=== PATIENT | male | born 1980 | race Caucasian/White ===

== ENCOUNTER 2018-12-20 19:52 | Emergency (ER) | payer BC, SELFPAY ==
[2018-12-20 20:02] VITALS: BP 150/94; PULSE 74; RESP 16; TEMP 36.6; O2SAT 96
--- NOTE | 2018-12-20 20:13 | W.ED.GENAD ---
Discharge Plan Disposition Patient Disposition: HOME Condition: Good Discharge Details Chief Complaint: Orthopedic Clinical Impression: Injury of ankle, left Primary Care Provider: None,None ED Provider: Jesus Lucero Meds and New Rx's Prescriptions: Changed ibuprofen 200 mg Tablet 600 mg PO Q6H PRNQty: 0 RF: 0 Discharge Instructions Instructions: Ankle Sprain (ED) Additional Instructions: X-rays are questionable for a possible small avulsion fracture versus severe sprain. Wear the walking boot during the day and follow-up with orthopedics. Ice and elevate over the next few days. Ibuprofen for pain and swelling. We will have care management work on getting you a primary care provider as well for management of your blood pressure. Referrals: Care Management [Provider Group] Markus Abreu MD [ [facility] STAFF PHYSICIAN] - Medical Decision Making Patient with isolated left ankle injury while playing soccer. Has significant swelling over the lateral malleolus but does not have any bony tenderness anywhere. Technically passes the [place] ankle rules but because the amount of swelling that is present involving the lateral malleolus will get x-rays to confirm no fracture. 21:00 -patient's x-ray does reveal a linear osseous fragment between the talus and lateral malleolus. There is significant soft tissue swelling. Unclear whether this fragment is new or old. May be a small avulsion injury. 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 He is also supposed to be walking at graduation next week. We will place him in a walking boot and have him follow-up with orthopedics. Ibuprofen and ice for pain and swelling. We will also refer to primary care as he does not have one here. He has been on lisinopril in the past for high blood pressure. His blood pressure of 150/90 is typical for him. We discussed the risk of not treating elevated blood pressure/hypertension. He is requesting referral to primary care. Will place him on care management list for follow-up in 4 to 6 weeks with primary care for elevated blood pressure. HPI General Mode of arrival: ambulatory. Date/Time Provider Initiated Documentation: 12/20/18 20:05. Limitations to Documentation: no limitations. Information obtained by: patient. HPI Narrative: Patient presents to ED with complaint of left ankle pain. Patient was playing soccer when he twisted his ankle going over the soccer ball. He heard a snap. He was ambulatory to the field house where he grabbed ice and ibuprofen. The lateral aspect of his ankle is very swollen. He decided to come in to make sure there is no fracture. He was able to ambulate in. He denies other injury. Related Data Home Medications Medication Instructions Recorded Confirmed ibuprofen 600 mg PO Q6H PRN #0 tab 12/20/18 12/20/18 Previous Rx's Medication Instructions Recorded ibuprofen 600 mg PO Q6H PRN #0 tab 12/20/18 General Stated Complaint: Orthopedic RICHARD: 4 Review of Systems Review of Systems As documented in HPI otherwise negative as below. Const: no fever, chills, weakness Resp: no cough, SOB, pleuritic pain CV: no CP, diaphoresis, edema, syncope GI: no abdominal pain, nausea, vomiting, diarrhea Neuro: no headache, numbness, focal weakness, confusion PFSH Medical History HTN (hypertension) (Chronic) Surgical History S/P ORIF (open reduction internal fixation) fracture (Inactive) Social History Smoking/Tobacco Use Status: Never Alcohol Intake: never Substance use type: does not use Do you feel safe at home: Yes Do you feel safe in your relationship?: Yes Exam Narrative Exam Narrative: Vitals: BP elevated. Const: WDWN male in NAD. HEENT: NC/AT. Normal facial exam. Neck: Supple. Trachea midline. Lungs: Normal respiratory effort. Neuro: A+O x 3. CN grossly in tact. Good strength and no focal deficit. Ext: Left ankle with marked lateral malleolus swelling. No significant tenderness over either malleoli, proximal fibula, lateral foot. Patient is neurovascularly intact. Skin: Warm and dry. No wounds. Course Vital Signs Temperature 97.9 F 12/20/18 20:02 Pulse 74 12/20/18 20:02 Respiratory Rate 16 12/20/18 20:02 Blood Pressure 150/94 H 12/20/18 20:02 Pulse Oximetry 96 12/20/18 20:02 Temperature 97.9 F 12/20/18 20:02 Temperature Source Temporal Artery Scan 12/20/18 20:02 Pulse 74 12/20/18 20:02 Respiratory Rate 16 12/20/18 20:02 Respiratory Effort 12/20/18 20:06 Blood Pressure 150/94 H 12/20/18 20:02 Blood Pressure Position Sitting 12/20/18 20:02 Pulse Oximetry 96 12/20/18 20:02 Oxygen Delivery Method Room Air 12/20/18 20:02 Oxygen Flow Rate 0 12/20/18 20:02
--- NOTE | 2018-12-20 20:18 | ED.GENADUL_ITS ---
Discharge Plan Disposition Patient Disposition: HOME Condition: Good Discharge Details Chief Complaint: Orthopedic Clinical Impression: Injury of ankle, left Primary Care Provider: None,None ED Provider: Jesus Lucero Meds and New Rx's Prescriptions: Changed ibuprofen 200 mg Tablet 600 mg PO Q6H PRNQty: 0 RF: 0 Discharge Instructions Instructions: Ankle Sprain (ED) Additional Instructions: X-rays are questionable for a possible small avulsion fracture versus severe sprain. Wear the walking boot during the day and follow-up with orthopedics. Ice and elevate over the next few days. Ibuprofen for pain and swelling. We will have care management work on getting you a primary care provider as well for management of your blood pressure. Referrals: Care Management [Provider Group] Markus Abreu MD [ [facility] STAFF PHYSICIAN] - Medical Decision Making Patient with isolated left ankle injury while playing soccer. Has significant swelling over the lateral malleolus but does not have any bony tenderness anywhere. Technically passes the [place] ankle rules but because the amount of swelling that is present involving the lateral malleolus will get x-rays to confirm no fracture. 21:00 -patient's x-ray does reveal a linear osseous fragment between the talus and lateral malleolus. There is significant soft tissue swelling. Unclear whether this fragment is new or old. May be a small avulsion injury. 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 He is also supposed to be walking at graduation next week. We will place him in a walking boot and have him follow- up with orthopedics. Ibuprofen and ice for pain and swelling. We will also refer to primary care as he does not have one here. He has been on lisinopril in the past for high blood pressure. His blood pressure of 150/90 is typical for him. We discussed the risk of not treating elevated blood pressure/hypertension. He is requesting referral to primary care. Will place him on care management list for follow-up in 4 to 6 weeks with primary care for elevated blood pressure. HPI General Mode of arrival: ambulatory . Date/Time Provider Initiated Documentation: 12/20/18 20:05 . Limitations to Documentation: no limitations . Information obtained by: patient . HPI Narrative: Patient presents to ED with complaint of left ankle pain. Patient was playing soccer when he twisted his ankle going over the soccer ball. He heard a snap. He was ambulatory to the field house where he grabbed ice and ibuprofen. The lateral aspect of his ankle is very swollen. He decided to come in to make sure there is no fracture. He was able to ambulate in. He denies other injury. Related Data Home Medications Medication Instructions Recorded Confirmed ibuprofen 600 mg PO Q6H PRN #0 tab 12/20/18 12/20/18 Previous Rx's Medication Instructions Recorded ibuprofen 600 mg PO Q6H PRN #0 tab 12/20/18 General Stated Complaint: Orthopedic RICHARD: 4 Review of Systems Review of Systems As documented in HPI otherwise negative as below. Const: no fever, chills, weakness Resp: no cough, SOB, pleuritic pain CV: no CP, diaphoresis, edema, syncope GI: no abdominal pain, nausea, vomiting, diarrhea Neuro: no headache, numbness, focal weakness, confusion PFSH Medical History HTN (hypertension) (Chronic) Surgical History S/P ORIF (open reduction internal fixation) fracture (Inactive) Social History Smoking/Tobacco Use Status: Never Alcohol Intake: never Substance use type: does not use Do you feel safe at home: Yes Do you feel safe in your relationship?: Yes Exam Narrative Exam Narrative: Vitals: BP elevated. Const: WDWN male in NAD. HEENT: NC/AT. Normal facial exam. Neck: Supple. Trachea midline. Lungs: Normal respiratory effort. Neuro: A+O x 3. CN grossly in tact. Good strength and no focal deficit. Ext: Left ankle with marked lateral malleolus swelling. No significant tenderness over either malleoli, proximal fibula, lateral foot. Patient is neurovascularly intact. Skin: Warm and dry. No wounds. Course Vital Signs Temperature 97.9 F 12/20/18 20:02 Pulse 74 12/20/18 20:02 Respiratory Rate 16 12/20/18 20:02 Blood Pressure 150/94 H 12/20/18 20:02 Pulse Oximetry 96 12/20/18 20:02 Temperature 97.9 F 12/20/18 20:02 Temperature Source Temporal Artery Scan 12/20/18 20:02 Pulse 74 12/20/18 20:02 Respiratory Rate 16 12/20/18 20:02 Respiratory Effort 12/20/18 20:06 Blood Pressure 150/94 H 12/20/18 20:02 Blood Pressure Position Sitting 12/20/18 20:02 Pulse Oximetry 96 12/20/18 20:02 Oxygen Delivery Method Room Air 12/20/18 20:02 Oxygen Flow Rate 0 12/20/18 20:02
--- NOTE | 2018-12-20 20:40 | DI.RAD_ITS ---
SYMPTOM/DIAGNOSIS: TRAUMA, PAIN, ROLLED ANKLE LEFT ANKLE: A tiny calcific density is noted beneath the distal fibula and could possibly represent a small avulsion fracture. There is no other findings to suggest a fracture or dislocation.
--- NOTE | 2018-12-20 20:58 | DI.VRAD_ITS ---
EXAM: XR Left Ankle EXAM DATE/TIME: 12/20/2018 8:12 PM CLINICAL HISTORY: 38 years old, male; Pain; Left; Patient HX: Trauma. Rolled ankle. TECHNIQUE: Imaging protocol: XR Left ankle. Views: 3 or more views. COMPARISON: No relevant prior studies available. FINDINGS: Bones/joints: There is a tiny linear osseous fragment projecting inferior to the lateral malleolus on the AP film (image 1 series 1). No other acutely displaced fracture or dislocation is appreciated. Bone density is well preserved. Soft tissues: Significant soft tissue swelling about the lateral malleolus. IMPRESSION: 1. Tiny linear osseous fragment projecting inferior to the lateral malleolus raises the question of a possible small avulsion injury. No other acutely displaced fracture or dislocation is appreciated. 2. Significant soft tissue swelling about the lateral malleolus. Dictated and Authenticated by: Jose German MD. Ordering:ROBYN Lee MD
[2018-12-20 22:17] VITALS: BP 150/88
--- NOTE | 2018-12-21 09:26 | PDOC.ERCMPRO ---
Care Management Progress Note 12/21-Dr. 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 Referral faxed to [facility] this am.
--- NOTE | 2018-12-21 09:27 | CMPROGNOTE_ITS ---
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 Referral faxed to [facility] this am.
--- NOTE | 2018-12-21 14:14 | PDOC.ERCMPRO ---
Care Management Progress Note 5/30-CM faxed back, scheduled appt for 01/04 at 2:40 with Lashawn Bruno.
== END 2018-12-20 21:35 | disposition home or self-care (01) ==
PROVIDERS: Emergency Provider Emergency Medicine
DX: S93.402A Sprain of unspecified ligament of left ankle, initial encounter (principal); X50.9XXA Other and unspecified overexertion or strenuous movements or postures, initial encounter; Y93.66 Activity, soccer; I10 Essential (primary) hypertension
CPT/HCPCS: 29515; 99283; 73610; L4361

== ENCOUNTER 2020-04-14 18:10 | Outpatient (REF) | payer BC, SELFPAY ==
[2020-04-14 19:36] LABS: ALT 31 U/L (16-63); AST 23 U/L (15-37); Albumin 4.1 g/dL (3.4-5.0); Alkaline Phosphatase 55 U/L (46-116); Anion Gap 8.2 mmol/L (3-11); BUN 14 mg/dL (7-18); CO2 26.8 mmol/L (21.0-32.0); CREATININE 0.87 mg/dL (0.70-1.30); Calcium 9.3 mg/dL (8.5-10.1); Chloride 105 mmol/L (98-107); Glucose 90 mg/dL (74-106); Potassium 4.2 mmol/L (3.5-5.1); Sodium 140 mmol/L (136-145); TSH (W/Ref FT4) 2.58 uIU/mL (0.36-3.74); Total Protein 7.2 g/dL (6.4-8.2)
== END 2020-04-14 18:30 ==
LOC: NCHCN 18:10
PROVIDERS: PCP Nurse Practitioner; Visit Provider Nurse Practitioner
DX: I10 Essential (primary) hypertension (principal); Z13.29 Encounter for screening for other suspected endocrine disorder; Z13.21 Encounter for screening for nutritional disorder
CPT/HCPCS: 80053; 82306; 84443

== ENCOUNTER 2021-06-08 13:52 | Outpatient (REF) | payer BC, SELFPAY ==
[2021-06-10 17:03] LABS: COVID-19 RT-PCR UVMMC Result Negative (Negative)
== END 2021-06-08 13:53 | disposition home or self-care (01) ==
LOC: LBN 13:52
PROVIDERS: PCP Nurse Practitioner; Visit Provider Nurse Practitioner Family
DX: Z20.822 Contact with and (suspected) exposure to COVID-19 (principal)
CPT/HCPCS: U0003

== ENCOUNTER 2021-09-21 16:49 | Outpatient (REF) | payer BC, SELFPAY ==
[2021-09-21 20:11] LABS: Anion Gap 9.1 mmol/L (3-11); BUN 20 mg/dL (7-18); CO2 25.9 mmol/L (21.0-32.0); CREATININE 0.9 mg/dL (0.70-1.30); Calcium 9.3 mg/dL (8.5-10.1); Chloride 103 mmol/L (98-107); Glucose 102 mg/dL (74-106); Potassium 4.1 mmol/L (3.5-5.1); Sodium 138 mmol/L (136-145)
== END 2021-09-21 16:50 | disposition home or self-care (01) ==
LOC: NCHCN 16:49
PROVIDERS: PCP Nurse Practitioner; Visit Provider Nurse Practitioner Family
DX: Z00.00 Encounter for general adult medical examination without abnormal findings (principal); I10 Essential (primary) hypertension; F41.1 Generalized anxiety disorder
CPT/HCPCS: 80048

== ENCOUNTER 2021-10-14 20:40 | Emergency (ER) | payer BC, SELFPAY ==
[2021-10-14 20:45] VITALS: BP 159/93; PULSE 92; RESP 14; TEMP 36.5; O2SAT 98
--- NOTE | 2021-10-14 21:00 | DI.RAD_ITS ---
Exam(s) XR ANKLE LT COMPLETE EXAM: XR ANKLE LT COMPLETE CLINICAL HISTORY: sports injury, left ankle pain TECHNIQUE: 2D digital imaging was performed of the left ankle. Three images were obtained. AP, lat eral and oblique views were obtained. COMPARISON: CR XR ANKLE LT COMPLETE from 12/20/2018 FINDINGS: BONES: No acute fracture is present. No bony destructive lesion is seen. Tiny well corticated osseous density at the tip of the lateral malleolus consistent with old injury. JOINTS:The ankle mortise is normally aligned. SOFT TISSUE: Normal. IMPRESSION: No acute fracture or dislocation. DATA REPOSITORY: RADIATION DOSE DELIVERED:
--- NOTE | 2021-10-14 21:07 | ED.GENADUL_ITS ---
Discharge Plan Disposition Patient Disposition: HOME Condition: Improving Discharge Details Chief Complaint: Orthopedic Clinical Impression: Achilles rupture Primary Care Provider: SINCERE JOHNSON ED Provider: Ha Rudolph Home Meds and New Rx's Prescriptions: No Action ibuprofen 200 mg Tablet 600 mg PO Q6H PRNQty: 0 0RF lisinopril 20 mg Tablet 20 mg DAILY 0RF sertraline 100 mg Tablet 100 mg PO DAILY 0RF Discharge Instructions Instructions: Achilles Tendon Rupture (ED) Additional Instructions: Please be seen by Dr. Rodrigez orthopedic surgery in the office next week. Continue to use your crutches and do not bear weight on your affected leg. Return to the emergency department for any worsening symptoms, or if you develop numbness/change in sensation or change in color in your lower extremity. Referrals: Maurisio Rodrigez MD [ [facility] STAFF PHYSICIAN] - 1 week Medical Decision Making 41-year-old male presents after sports injury playing indoor soccer, pain and swelling to posterior ankle, decreased range of motion, positive Terry's test concerning for Achilles tendon rupture, no malleoli tenderness or deformity, patient soft compartments, warm well perfused extremity, superficial knee abrasion, no effusion or laxity to the knee. Will perform screening x-ray of ankle, analgesia, will contact orthopedic team to determine best plan for patient whether early operative intervention or follow-up within the next couple of days. Likely to immobilize Spoke with Dr. Rodrigez of orthopedic surgery, patient to be placed in a posterior slab lower extremity 20 degree plantar flexion, crutches nonweightbearing, to follow-up in the office. Pain controlled resting comfortably. Home care instructions and return precautions given HPI General Date/Time Provider Initiated Documentation: 10/14/21 20:41 . HPI Narrative: 41-year-old male presents after sports injury was playing soccer this [place], felt acute discomfort in his left ankle, decreased range of motion of the left ankle, also sustained abrasion to his left knee Related Data Home Medications Medication Instructions Recorded Confirmed ibuprofen 200 mg tablet 600 mg PO Q6H PRN #0 tab 12/20/18 10/14/21 lisinopril 20 mg tablet 20 mg DAILY 10/14/21 10/14/21 sertraline 100 mg tablet 100 mg PO DAILY 10/14/21 10/14/21 Previous Rx's Medication Instructions Recorded ibuprofen 200 mg tablet 600 mg PO Q6H PRN #0 tab 12/20/18 Allergies Allergy/AdvReac Type Severity Reaction Status Date / Time No Known Allergies Allergy Verified 10/14/21 20:51 General Stated Complaint: Orthopedic RICHARD: 4 Review of Systems Narrative: Review of Systems Constitutional: negative Eyes: negative ENT: negative Cardiovascular: negative Respiratory: negative Gastrointestinal: negative : negative Musculoskeletal: Ankle pain decreased range of motion Skin: negative Neurologic: negative Psych: negative PFSH All Active Problems (Updated 10/14/21 @ 23:08 by Ha Rudolph MD) Achilles rupture (Acute) Left radial head fracture (Acute) Acromioclavicular (joint) (ligament) sprain (Acute) Avulsion fracture of ankle (Acute) DOI: 12/20/2018 Medical History (Updated 10/14/21 @ 23:08 by Ha Rudolph MD) HTN (hypertension) Surgical History S/P ORIF (open reduction internal fixation) fracture right forearm Social History Smoking/Tobacco Use Status: Never Smoking risk assessment performed?: Yes Alcohol Intake: never Substance use type: does not use Do you feel safe at home: Yes Do you feel safe in your relationship?: Yes Exam Narrative Exam Narrative: Physical Examination General: alert, awake, cooperative, resting comfortably, no acute distress HEENT: normocephalic, atraumatic; PERRL, EOM intact, conjunctiva normal; no nasal discharge; moist mucous membranes, oral and pharyngeal mucosa normal, tolerating secretions Neck: supple, trachea midline; full ROM Chest: normal to inspection Respiratory: normal respiratory effort, speaking in full sentences, clear to auscultation, no wheezing, rales or rhonchi Cardiac: regular rate, regular rhythm, S1S2 intact, no murmurs rubs or gallops GI: abdomen soft, non-tender, non-distended; no palpable mass or hepatosplenomegaly Skin: no lesions, rashes or trauma appreciated Neuro: AAOx3, normal speech, moving all extremities Extremities: Superficial abrasion to prepatellar soft tissue of left lower extremity, edema to posterior ankle overlying area of Achilles tendon, unable to palpate discrete tendon midline, positive Terry test (no plantarflexion with sqeezing of gastroc); soft compartment, sensate warm well perfused extremity Psych: Appropriate mood and affect Course Vital Signs Vital signs: Vital Signs Temperature 36.5 C 10/14/21 20:45 Pulse 92 H 10/14/21 20:45 Respiratory Rate 14 10/14/21 20:45 Blood Pressure 159/93 H 10/14/21 20:45 Pulse Oximetry 98 10/14/21 20:45 Temperature 36.5 C 10/14/21 20:45 Temperature Source Temporal Artery Scan 10/14/21 20:45 Pulse 92 H 10/14/21 20:45 Respiratory Rate 14 10/14/21 20:45 Respiratory Effort Non-Labored 10/14/21 20:48 Blood Pressure 159/93 H 10/14/21 20:45 Blood Pressure Position Supine 10/14/21 20:45 Pulse Oximetry 98 10/14/21 20:45 Oxygen Delivery Method Room Air 10/14/21 20:45 Oxygen Flow Rate 0 10/14/21 20:45 Pain Level 3 10/14/21 20:45 Procedures Other Description: Posterior slab left lower extremity in 20 degree plantar flexion at the ankle,crutches and crutch training, sensation and color in toes intact
[2021-10-14] MEDS: oxyCODONE 5 mg/Acetaminophen 325 mg TAB 1 TAB PO (21:12)
[2021-10-14] MEDS: Ondansetron O.D.T. 4 MG TABEF SL (21:12)
--- NOTE | 2021-10-14 22:34 | DI.VRAD_ITS ---
PROCEDURE INFORMATION: Exam: XR Left Ankle Exam date and time: 10/14/2021 21:29 Age: 41 years old Clinical indication: Other: Sports injury, left ankle pain TECHNIQUE: Imaging protocol: XR Left ankle. Views: 3 or more views. COMPARISON: CR XR ANKLE LT COMPLETE 12/20/2018 20:33 FINDINGS: Bones/joints: Plantar calcaneal spur. No acute fracture or subluxation. Soft tissues: Evidence of probable chronic ligamentous injury in the lateral ankle. Mild swelling about the ankle. IMPRESSION: No acute bony pathology. Dictated and Authenticated by: Anita Morgan MD. Ordering:PVENKAT Bonner MD
== END 2021-10-14 23:15 | disposition home or self-care (01) ==
PROVIDERS: Emergency Provider Emergency Medicine; PCP Nurse Practitioner Family
DX: S86.092A Other specified injury of left Achilles tendon, initial encounter (principal); X50.1XXA Overexertion from prolonged static or awkward postures, initial encounter
CPT/HCPCS: 29515; 99283; 73610

== ENCOUNTER 2021-11-19 20:19 | Emergency (ER) | payer BC, SELFPAY ==
[2021-11-19 20:38] VITALS: BP 149/95; PULSE 71; RESP 18; TEMP 36.6; O2SAT 98
--- NOTE | 2021-11-19 22:27 | W.ED.GENAD ---
Discharge Plan Disposition Patient Disposition: HOME Condition: Stable Discharge Details Clinical Impression: Pain and swelling of left lower leg Primary Care Provider: SINCERE JOHNSON ED Provider: Etta Salguero Home Meds and New Rx's Prescriptions: No Action ibuprofen 200 mg Tablet 600 mg PO Q6H PRNQty: 0 0RF lisinopril 20 mg Tablet 20 mg DAILY 0RF sertraline 100 mg Tablet 100 mg PO DAILY 0RF Discharge Instructions Instructions: Leg Pain (ED) Additional Instructions: Return to the radiology department as directed or and or schedule by diagnostic imaging either tomorrow or Tuesday. Please follow-up with result either in the ER if you are able to come tomorrow or with your primary care provider. Take a chewable baby aspirin daily. Return to the ER for any chest pain, shortness of breath, worsening pain in your upper extremity or any concerns. Follow up with primary care provider in 3-5 days. Return to ED sooner if any worsening or concerns. Increase oral fluids. Rest, ice, compression, elevation. Stand Alone Forms: Work Release Referrals: SINCERE JOHNSON, [facility] [Primary Care Provider] - 3 days Medical Decision Making 41-year-old male presents to the ER with chief complaint of left lower extremity swelling and increased warmth mild redness with concern for possible DVT. Patient had a torn Achilles tendon approximately 5 weeks ago and was seen by orthopedic and has been wearing a boot. Patient was sent here with a concern for rule out DVT. Informed patient that I do not have ultrasound capabilities at this time I do recommend that he comes back in the a.m. to get a left lower extremity Doppler to rule out DVT. We will give 324 mg aspirin at this time and perform a POC ultrasound. Bedside ultrasound performed veins are compressible throughout lower extremity. Instructed patient to take 81 mg daily baby aspirin until official ultrasound to be performed and resulted. He verbalizes understanding. I discussed strict return instructions to return for any chest pain shortness of breath worsening swelling, fever or any concerns she verbalized understanding. I did discuss RICE procedures and have him elevate ice his leg while sitting for long periods of time. This text was generated using ODECation system, please disregard any oddities of phrase or misspellings. HPI General Mode of arrival: ambulatory. Date/Time Provider Initiated Documentation: 11/19/21 20:57. Limitations to Documentation: no limitations. Information obtained by: patient, RN notes reviewed and old records reviewed. HPI Narrative: 41-year-old male presents to the ER with chief complaint of left lower extremity swelling and increased warmth mild redness with concern for possible DVT. Patient had a torn Achilles tendon approximately 5 weeks ago and was seen by orthopedic and has been wearing a boot. Patient was sent here with a concern for rule out DVT. He denies any chest pain, shortness of breath no groin pain or any other associated symptoms. He does have good distal pulses and cap refill. Related Data Home Medications Medication Instructions Recorded Confirmed ibuprofen 200 mg tablet 600 mg PO Q6H PRN #0 tab 12/20/18 11/10/21 lisinopril 20 mg tablet 20 mg DAILY 10/14/21 11/10/21 sertraline 100 mg tablet 100 mg PO DAILY 10/14/21 11/10/21 Previous Rx's Medication Instructions Recorded ibuprofen 200 mg tablet 600 mg PO Q6H PRN #0 tab 12/20/18 Allergies Allergy/AdvReac Type Severity Reaction Status Date / Time No Known Allergies Allergy Verified 11/10/21 08:58 General Stated Complaint: Vascular RICHARD: 3 Review of Systems All systems reviewed & are unremarkable except as noted in HPI and below Cardiovascular Cardiovascular: Denies chest pain and Denies dyspnea Respiratory Respiratory: Denies dyspnea Musculoskeletal Musculoskeletal: Reports as per HPI, Reports joint swelling and Reports radiating pain into limb PFSH All Active Problems (Updated 11/19/21 @ 23:02 by Etta Salguero) Pain and swelling of left lower leg (Acute) Achilles rupture, left (Acute 10/14/21) Left radial head fracture (Acute) Acromioclavicular (joint) (ligament) sprain (Acute) Avulsion fracture of ankle (Acute) DOI: 12/20/2018 Medical History HTN (hypertension) Surgical History S/P ORIF (open reduction internal fixation) fracture right forearm Social History Smoking/Tobacco Use Status: Never Smoking risk assessment performed?: Yes Alcohol Intake: never Substance use type: does not use Current gender identity: male Do you feel safe at home: Yes Do you feel safe in your relationship?: Yes Exam Narrative Exam Narrative: Constitutional: Alert and oriented x3. Appears stated age. Normal body habitus. Head: Normocephalic, no trauma. Eyes: Pupils PERRL, EOM's intact. Eyelids symmetrical without lesions, discharge, or swelling. Chest: RRR, Normal S1, S2, distal pulses intact. Resp: Lungs clear to auscultation bilaterally, no wheezes, rales, or rhonchi. Abdomen: Soft, non-distended, Normoactive bowel sounds all 4 quads. Musculoskeletal: Normal gait, 5/5 strength to all four extremities. Wearing a walking boot on his left lower extremity. There is a mild swelling noted to his left lower extremity mild warmth. Unable to do Homans' sign due to history of Achilles rupture this with exam and test was deferred. Skin: No suspicious rashes or lesions. Capillary refill less than 2 sec. Extrem General: capillary refill normal, normal exam except as noted, no pedal edema and limp Left lower extremity: lower leg (Wearing a walking boot) Details: tenderness, localized swelling and warmth Course Vital Signs Vital signs: Vital Signs Temperature 36.6 C 11/19/21 20:38 Pulse 71 11/19/21 20:38 Respiratory Rate 18 11/19/21 20:38 Blood Pressure 149/95 H 11/19/21 20:38 Pulse Oximetry 98 11/19/21 20:38 Temperature 36.6 C 11/19/21 20:38 Temperature Source Tympanic 11/19/21 20:38 Pulse 71 11/19/21 20:38 Respiratory Rate 18 11/19/21 20:38 Respiratory Effort 11/19/21 20:40 Respiratory Depth Normal 11/19/21 20:40 Respiratory Pattern Normal 11/19/21 20:40 Blood Pressure 149/95 H 11/19/21 20:38 Blood Pressure Position Supine 11/19/21 20:38 Pulse Oximetry 98 11/19/21 20:38 Oxygen Delivery Method Room Air 11/19/21 20:38 Oxygen Flow Rate 0 11/19/21 20:38 Pain Level 2 11/19/21 20:38
[2021-11-19] MEDS: Aspirin 81 MG CHEW 324 MG CH (22:59)
--- NOTE | 2021-11-19 23:25 | NUR.NOTE ---
Ultrasound req faxed to radiology for l lower extremity swelling. Patient instructed to call DI in am to make appt.Nursing Note:
[2021-11-19 23:34] VITALS: BP 132/64; PULSE 68; RESP 18; TEMP 36.3; O2SAT 98
--- NOTE | 2021-11-23 07:29 | NUR.NOTE ---
Notified by DI that patient had cancelled his appt for today.
== END 2021-11-19 23:35 | disposition home or self-care (01) ==
PROVIDERS: Emergency Provider Registered Nurse Emergency; PCP Nurse Practitioner Family
DX: R07.9 Chest pain, unspecified (principal); J10.1 Influenza due to other identified influenza virus with other respiratory manifestations; R05.9 Cough, unspecified
CPT/HCPCS: 99284; 99283

== ENCOUNTER → 2021-12-29 00:40 | Outpatient (CLI) | payer BC, SELFPAY | PROVIDERS: PCP Nurse Practitioner Family; Visit Provider Registered Nurse Emergency ==

== ENCOUNTER 2022-10-11 15:28 | Outpatient (REF) | payer BC, SELFPAY ==
[2022-10-11 19:27] LABS: HCT 42.4 % (40.0-50.0); HGB 14.3 g/dL (13.5-17.5); MCH 29.4 pg (27.0-33.0); MCHC 33.7 % (32.0-36.0); MCV 87 fL (80-95); MPV 10.9 fL (8.0-11.0); Platelet Count 261 10^3/uL (130-400); RBC 4.86 10^6/uL (4.36-5.78); RDW 12.2 % (11.8-14.1); RDW-SD 39.1 fL; WBC 8.31 10^3/uL (4.4-10.8)
[2022-10-11 19:46] LABS: ALT 30 U/L (16-63); AST 28 U/L (15-37); Albumin 3.9 g/dL (3.4-5.0); Alkaline Phosphatase 63 U/L (46-116); Anion Gap 9.6 mmol/L (3-11); BUN 15 mg/dL (7-18); Bilirubin, Total 0.9 mg/dL (0.2-1.0); CO2 26.4 mmol/L (21.0-32.0); CREATININE 1.1 mg/dL (0.70-1.30); Calcium 9.5 mg/dL (8.5-10.1); Chloride 104 mmol/L (98-107); Cholesterol 286 mg/dL (<200); Estimated GFR 87.03 (mL/min/1.73m2); Glucose 105 mg/dL (74-106); HDL Cholesterol 43 mg/dL (40-60); Potassium 4.1 mmol/L (3.5-5.1); Sodium 140 mmol/L (136-145); Total Protein 7.7 g/dL (6.4-8.2); Triglyceride 412 mg/dL (<150)
[2022-10-11 20:02] LABS: Vitamin D 25 Total 31.7 ng/mL (30-100)
[2022-10-11 20:37] LABS: LDL CHOLESTEROL 160 mg/dL (<100)
== END 2022-10-11 15:29 | disposition home or self-care (01) ==
LOC: NCHCN 15:28
PROVIDERS: PCP Nurse Practitioner Family; Visit Provider Nurse Practitioner Family
DX: Z00.00 Encounter for general adult medical examination without abnormal findings (principal); F41.1 Generalized anxiety disorder; I10 Essential (primary) hypertension; G47.39 Other sleep apnea; Z13.21 Encounter for screening for nutritional disorder
CPT/HCPCS: 80053; 80061; 82306; 83721; 85027; 84443

== ENCOUNTER → 2023-05-26 13:11 | Outpatient (CLI) | payer BC, SELFPAY ==
--- NOTE | 2023-05-26 | DI.RAD_ITS ---
Exam(s) XR CHEST 2V PA LATERAL EXAM: XR CHEST 2V PA LATERAL CLINICAL HISTORY: [id number] TECHNIQUE: 2D digital imaging was performed of the chest. Two images were obtained. PA and lateral views were obtained. COMPARISON: No exams were available for comparison FINDINGS: MEDIASTINUM: Normal. HEART: Normal. PULMONARY VASCULATURE: Normal. LUNGS: No focal consolidating infiltrates are seen. Linear scarring or atelectasis is seen in the le ft lung base. PLEURAL SPACE: No pleural effusion or pneumothorax. BONE:Within normal limits for the patient's age. OTHER FINDINGS:There is elevation of the right hemidiaphragm. IMPRESSION: No acute pulmonary findings. DATA REPOSITORY: RADIATION DOSE DELIVERED:
== END ==
PROVIDERS: PCP Nurse Practitioner Family; Visit Provider Physician Assistant Medical
DX: R06.00 Dyspnea, unspecified (principal)
CPT/HCPCS: 71046

== ENCOUNTER 2023-05-26 13:16 | Outpatient (CLI) | payer BC, SELFPAY ==
[2023-05-26 13:09] LABS: Abs Immature Grans 0.02 10^3/uL (0.0-0.06); Absolute Basophil Count 0.04 10^3/uL (0.0-0.2); Absolute Eosinophil Count 0.12 10^3/uL (0.0-0.7); Absolute Neutrophil Count 5.57 10^3/uL (1.2-6.7); Basophils % 0.4; Eosinophils % 1.3; HGB 14.3 g/dL (13.5-17.5); Immature Grans % 0.2; Lymphocytes % 26.5; MCH 29.9 pg (27.0-33.0); MCHC 33.3 % (32.0-36.0); MCV 90 fL (80-95); MPV 9.9 fL (8.0-11.0); Monocytes % 9.9; Neutrophils % 61.7; Platelet Count 286 10^3/uL (130-400); RBC 4.79 10^6/uL (4.36-5.78); RDW 11.5 % (11.8-14.1); RDW-SD 37.9 fL; WBC 9.05 10^3/uL (4.4-10.8)
[2023-05-26 13:38] LABS: D-Dimer 240 ng/mlFEU (<500)
[2023-05-26 16:31] LABS: ALT 36 U/L (16-63); AST 20 U/L (15-37); Albumin 3.8 g/dL (3.4-5.0); Alkaline Phosphatase 66 U/L (46-116); Anion Gap 8.5 mmol/L (3-11); BUN 17 mg/dL (7-18); Bilirubin, Total 0.9 mg/dL (0.2-1.0); CO2 28.5 mmol/L (21.0-32.0); CREATININE 1.1 mg/dL (0.70-1.30); Calcium 9.3 mg/dL (8.5-10.1); Chloride 102 mmol/L (98-107); Estimated GFR 87.03 (mL/min/1.73m2); Glucose 112 mg/dL (74-106); Lipase 56 U/L (16-77); Potassium 3.7 mmol/L (3.5-5.1); Sodium 139 mmol/L (136-145); Total Protein 7.8 g/dL (6.4-8.2)
== END 2023-05-26 13:17 | disposition home or self-care (01) ==
LOC: LBO 13:16
PROVIDERS: PCP Nurse Practitioner Family; Visit Provider Physician Assistant Medical
DX: R06.00 Dyspnea, unspecified (principal)
CPT/HCPCS: 36415; 80053; 83690; 85025; 85379

== ENCOUNTER 2024-06-27 16:04 | Outpatient (REF) | payer BC, SELFPAY ==
[2024-06-27 20:42] LABS: ALT 30 U/L (16-63); Alkaline Phosphatase 62 U/L (46-116); Anion Gap 9.7 mmol/L (3-11); BUN 17 mg/dL (7-18); Bilirubin, Total 1.28 mg/dL (0.2-1.0); CO2 26.3 mmol/L (21.0-32.0); CREATININE 0.9 mg/dL (0.70-1.30); Calcium 9.1 mg/dL (8.5-10.1); Chloride 106 mmol/L (98-107); Cholesterol 270 mg/dL (<200); Estimated GFR 109.36 (mL/min/1.73m2); Glucose 108 mg/dL (74-106); HDL Cholesterol 43 mg/dL (40-60); Potassium 4.1 mmol/L (3.5-5.1); Sodium 142 mmol/L (136-145); Total Protein 7.4 g/dL (6.4-8.2); Triglyceride 585 mg/dL (<150); Vitamin D 25 Total 32.6 ng/mL (30-100)
[2024-06-27 21:15] LABS: LDL CHOLESTEROL 153 mg/dL (<100)
[2024-06-27 21:16] LABS: AST 20 U/L (15-37)
== END 2024-06-27 16:05 | disposition home or self-care (01) ==
LOC: NCHCN 16:04
PROVIDERS: PCP Nurse Practitioner Family; Visit Provider Nurse Practitioner Family
DX: Z00.00 Encounter for general adult medical examination without abnormal findings (principal)
CPT/HCPCS: 80053; 80061; 82306; 83721

== ENCOUNTER 2025-01-16 09:46 | Outpatient (REF) | payer OTHER, SELFPAY ==
[2025-01-16 16:21] LABS: Calculated LDL 160 mg/dL (<100); Cholesterol 260 mg/dL (<200); HDL Cholesterol 46 mg/dL (>or=40); Triglyceride 271 mg/dL (<150)
== END 2025-01-16 09:47 | disposition home or self-care (01) ==
LOC: NCHCN 09:46
PROVIDERS: PCP Nurse Practitioner Family; Visit Provider Nurse Practitioner Family
DX: E78.2 Mixed hyperlipidemia (principal)
CPT/HCPCS: 80061

== ENCOUNTER 2025-07-11 14:13 | Outpatient (REF) | payer BC, SELFPAY ==
[2025-07-11 19:29] LABS: HCT 39.8 % (40.0-50.0); HGB 13.1 g/dL (13.5-17.5); MCH 29.6 pg (27.0-33.0); MCHC 32.9 % (32.0-36.0); MCV 90 fL (80-95); MPV 10.4 fL (8.0-11.0); Platelet Count 267 10^3/uL (130-400); RBC 4.42 10^6/uL (4.36-5.78); RDW 11.4 % (11.8-14.1); RDW-SD 37.6 fL; WBC 6.70 10^3/uL (4.4-10.8)
[2025-07-11 19:43] LABS: ALT 45 U/L (10-49); AST 34 U/L (<34); Albumin 4.2 g/dL (3.2-5.0); Alkaline Phosphatase 54 U/L (46-116); Anion Gap 8.4 mmol/L (3-11); BUN 13 mg/dL (9-23); Bilirubin, Total 1.1 mg/dL (0.2-1.2); CO2 25.6 mmol/L (20.0-31.0); Calcium 9.1 mg/dL (8.3-10.6); Chloride 106 mmol/L (98-107); Glucose 124 mg/dL (74-106); Potassium 4.1 mmol/L (3.5-5.1); Sodium 140 mmol/L (136-145); Total Protein 7.0 g/dL (5.7-8.2)
[2025-07-11 19:44] LABS: Iron 103 ug/dL (65-175); Total Iron Binding Capacity 335 ug/dL (250-425); Transferrin Sat 31 % (20-55)
[2025-07-11 19:46] LABS: Ferritin 45 ng/mL (11-307)
== END 2025-07-11 14:14 | disposition home or self-care (01) ==
LOC: NCHCN 14:13
PROVIDERS: PCP Nurse Practitioner Family; Visit Provider Nurse Practitioner Family
DX: Z00.00 Encounter for general adult medical examination without abnormal findings (principal)
CPT/HCPCS: 80053; 85027; 82728; 83540; 83550